=== PATIENT | male | born 1970 | race Caucasian/White ===

== ENCOUNTER 2018-04-16 18:21 | Emergency (ER) | payer OTHER ==
[~2018-04-16] VITALS: Ht 180.3 cm; Wt 83.9 kg
[2018-04-16 19:23] LABS: BILIRUBIN,URINE NEGATIVE (NEG); CLARITY,URINE CLEAR; COLOR,URINE YELLOW; NITRITE,URINE NEGATIVE (NEG); PH,URINE 6.5; PROTEIN,URINE NEGATIVE (NEG-TRACE); UROBILINOGEN,URINE 0.2 mg/dL (0.2 mg/dL)
[2018-04-16 19:38] LABS: BACTERIA,URINE 0 /HPF (0-FEW); RBC,URINE RARE /HPF (0-2); WBC,URINE 0 /HPF (0-4)
[2018-04-16 19:55] LABS: BASO # 0.1 x10^3/uL (0.0-0.2); BASO % 0 % (0-3); EOS % 0 % (0-3); HEMATOCRIT 40.3 % (39.0-53.0); HEMOGLOBIN 13.7 g/dL (13.0-17.5); LYMPH # 1.1 x10^3/uL (1.0-4.8); LYMPH % 8 % (24-48); MEAN CORPUSCULAR HEMOGLOBIN 30 pg (25-35); MEAN CORPUSCULAR HGB CONC 34 g/dL (31-37); MEAN CORPUSCULAR VOLUME 88 fL (79-100); MONO # 0.6 x10^3/uL (0.0-1.1); MONO % 4 % (0-9); NEUT # 11.3 x10^3uL (1.8-7.7); NEUT % 87 % (31-73); PLATELET COUNT 270 x10^3/uL (140-400); RED BLOOD COUNT 4.57 x10^6/uL (4.30-5.70); RED CELL DISTRIBUTION WIDTH 12.8 % (11.5-14.5)
[2018-04-16 20:06] LABS: CALCIUM 9.1 mg/dL (8.5-10.1); CREATININE 0.8 mg/dL (0.7-1.3); GFR 103.2; POTASSIUM 3.7 mmol/L (3.5-5.1)
[2018-04-16 20:12] LABS: ALBUMIN/GLOBULIN RATIO 1.3 (1.0-1.7); TOTAL BILIRUBIN 0.5 mg/dL (0.2-1.0); TOTAL PROTEIN 7.1 g/dL (6.4-8.2)
[2018-04-16] MEDS ORDERED: IV NORMAL SALINE 1000ML BAG 1,000 ML IV ONE (20:15)
[2018-04-16 20:22] LABS: % BANDS 1 % (0-9); % LYMPHS 10 % (24-48); % METAS 1 % (0-0); % MONOS 3 % (0-10); % SEGS 85 % (35-66); PLT ESTIMATE ADEQUATE (ADEQUATE)
[2018-04-16] MEDS ORDERED: CONTRAST GIVEN. MC PRN (21:00)
[2018-04-16] MEDS ORDERED: IOHEXOL 300 MG/ML 100ML VIAL. IV ONE (21:00)
--- NOTE | 2018-04-16 21:16 | RAD ---
PQRS Compliance statement: One or more of the following individualized dose reduction techniques were utilized for this examination: 1. Automated exposure control. 2. Adjustment of the mA and/or kV according to patient size. 3. Use of iterative reconstruction technique. Indication:FLANK PAIN, HEMATURIA, H/O RENAL CYST, OMNI 300, 75ml TECHNIQUE: CT abdomen and pelvis with IV contrast with multiplanar reformats. COMPARISON: None FINDINGS: Heart is normal in size. No pericardial or pleural effusion. Clear lung bases. Liver, spleen, gallbladder, pancreas, adrenals within normal limits. No nephrolithiasis or hydronephrosis. Simple appearing cyst is seen in the left kidney measuring 2.6 cm. No free pelvic fluid or ascites. No enlarged retroperitoneal or pelvic adenopathy. No bowel obstruction. Normal appendix. The prostate and seminal vesicles show no large mass. 3.1 x 1.8 cm posterior bladder diverticulum. No pneumoperitoneum. No suspicious bony lesion. IMPRESSION: No acute findings. Electronically signed by: Donal Dickey DO (04/16/2018 9:13 PM) [facility]
--- NOTE | 2018-04-16 21:33 | PHYS DOC ---
Past Medical History Past Medical History: Hypertension Past Surgical History: Tonsillectomy Alcohol Use: None Drug Use: None Adult General Chief Complaint Chief Complaint: BLOOD IN URINE HPI HPI Patient is a 47 year old male who identifies as female with hormonal therapy and male genitalia who presents with painless hematuria after urinating. Patient states she has been constipated and that after straining she noted small amount of blood present in her urethra. Blood was bright red and has since resolved. Patient also reports vague left flank pain. No history of kidney stones but does report history of renal cysts. No fever chills, nausea vomiting or sweats. No suprapubic pain, burning dysuria. Patient does express concerns for possible STD exposures.[] Review of Systems Review of Systems Review symptoms as per history of present illness. All other review symptoms are negative. [] All other systems were reviewed and found to be within normal limits, except as documented in this note. Current Medications Current Medications Current Medications Medications (Trade) Dose Ordered Sig/Elizabeth Start Time Stop Time Status Last Admin Dose Admin Info (CONTRAST GIVEN -- Rx MONITORING) 1 each PRN DAILY PRN 04/16/18 21:00 04/18/18 20:59 Iohexol (Omnipaque 300 Mg/ml) 75 ml 1X ONCE 04/16/18 21:00 04/16/18 21:01 DC 04/16/18 21:02 75 ML Sodium Chloride 1,000 ml @ 1,000 mls/hr 1X ONCE 04/16/18 20:15 04/16/18 21:14 DC 04/16/18 20:17 1,000 MLS/HR Allergies Allergies Allergies Coded Allergies Type Severity Reaction Last Updated Verified phenobarbital Allergy Unknown 04/16/18 Yes Physical Exam Physical Exam Constitutional: Well developed, well nourished, no acute distress, non-toxic appearance. [] HENT: Normocephalic, atraumatic, bilateral external ears normal, oropharynx moist, no oral exudates, nose normal. [] Eyes: PERRLA, EOMI, conjunctiva normal, no discharge. [] Neck: Normal range of motion, no tenderness, supple. [] Cardiovascular:Heart rate regular rhythm, no murmur [] Lungs & Thorax: Bilateral breath sounds clear to auscultation [] Abdomen: Bowel sounds normal, soft, no tenderness, no masses, no pulsatile masses. [] Skin: Warm, dry, no erythema, no rash. [] Back: No tenderness, no CVA tenderness. [] Extremities: No tenderness, no cyanosis, no clubbing, ROM intact, no edema. [] Neurologic: Alert and oriented X 3, normal motor function, normal sensory function, no focal deficits noted. [] Psychologic: Affect normal, judgement normal, mood normal. [] Current Patient Data Vital Signs Vital Signs Date Time Temp Pulse Resp B/P (MAP) Pulse Ox O2 Delivery O2 Flow Rate FiO2 04/16/18 21:42 83 179/86 (117) 98 04/16/18 19:10 98.1 16 Room Air 98.1 Lab Values Laboratory Tests Test 04/16/18 18:28 04/16/18 19:50 Urine Collection Type Unknown Urine Color Yellow Urine Clarity Clear Urine pH 6.5 Urine Specific [place] <=1.005 Urine Protein Negative mg/dL (NEG-TRACE) Urine Glucose (UA) Negative mg/dL (NEG) Urine Ketones (Stick) Negative mg/dL (NEG) Urine Blood Large (NEG) Urine Nitrite Negative (NEG) Urine Bilirubin Negative (NEG) Urine Urobilinogen Dipstick 0.2 mg/dL (0.2 mg/dL) Urine Leukocyte Esterase Negative (NEG) Urine RBC Rare /HPF (0-2) Urine WBC 0 /HPF (0-4) Urine Bacteria 0 /HPF (0-FEW) White Blood Count 13.0 x10^3/uL (4.0-11.0) H Red Blood Count 4.57 x10^6/uL (4.30-5.70) Hemoglobin 13.7 g/dL (13.0-17.5) Hematocrit 40.3 % (39.0-53.0) Mean Corpuscular Volume 88 fL (79-100) Mean Corpuscular Hemoglobin 30 pg (25-35) Mean Corpuscular Hemoglobin Concent 34 g/dL (31-37) Red Cell Distribution Width 12.8 % (11.5-14.5) Platelet Count 270 x10^3/uL (140-400) Neutrophils (%) (Auto) 87 % (31-73) H Lymphocytes (%) (Auto) 8 % (24-48) L Monocytes (%) (Auto) 4 % (0-9) Eosinophils (%) (Auto) 0 % (0-3) Basophils (%) (Auto) 0 % (0-3) Neutrophils # (Auto) 11.3 x10^3uL (1.8-7.7) H Lymphocytes # (Auto) 1.1 x10^3/uL (1.0-4.8) Monocytes # (Auto) 0.6 x10^3/uL (0.0-1.1) Eosinophils # (Auto) 0.0 x10^3/uL (0.0-0.7) Basophils # (Auto) 0.1 x10^3/uL (0.0-0.2) Segmented Neutrophils % 85 % (35-66) H Band Neutrophils % 1 % (0-9) Lymphocytes % 10 % (24-48) L Monocytes % 3 % (0-10) Metamyelocytes % 1 % (0-0) H Platelet Estimate Adequate (ADEQUATE) Sodium Level 138 mmol/L (136-145) Potassium Level 3.7 mmol/L (3.5-5.1) Chloride Level 100 mmol/L (98-107) Carbon Dioxide Level 25 mmol/L (21-32) Anion Gap 13 (6-14) Blood Urea Nitrogen 13 mg/dL (8-26) Creatinine 0.8 mg/dL (0.7-1.3) Estimated GFR (Cockcroft-Gault) 103.2 BUN/Creatinine Ratio 16 (6-20) Glucose Level 99 mg/dL (70-99) Calcium Level 9.1 mg/dL (8.5-10.1) Total Bilirubin 0.5 mg/dL (0.2-1.0) Aspartate Amino Transferase (AST) 23 U/L (15-37) Alanine Aminotransferase (ALT) 23 U/L (16-63) Alkaline Phosphatase 56 U/L (46-116) Total Protein 7.1 g/dL (6.4-8.2) Albumin 4.0 g/dL (3.4-5.0) Albumin/Globulin Ratio 1.3 (1.0-1.7) Laboratory Tests 04/16/18 19:50 Laboratory Tests 04/16/18 19:50 EKG EKG [] Radiology/Procedures Radiology/Procedures CT abdomen pelvis: No findings kidney stone or obstruction.[] Course & Med Decision Making Course & Med Decision Making Pertinent Labs and Imaging studies reviewed. (See chart for details) [Symptoms essentially resolved prior to ED arrival. Recommend watchful waiting, PCP follow-up for repeat urine test and further outpatient management. Return precautions reviewed.] Dragon Disclaimer Dragon Disclaimer This electronic medical record was generated, in whole or in part, using a voice recognition dictation system. Departure Departure Impression: Primary Impression: Hematuria Disposition: HOME, SELF-CARE Condition: Referrals: NO PCP (PCP) ISMAEL HIDALGO DO Apr 16, 2018 21:33
[2018-04-16 21:42] VITALS: BP 179/86
== END 2018-04-16 21:45 | disposition home or self-care (01) ==
LOC: ER 18:21
DX: R31.9 Hematuria, unspecified (principal); I10 Essential (primary) hypertension; K59.00 Constipation, unspecified; R10.9 Unspecified abdominal pain; Z90.89 Acquired absence of other organs
CPT/HCPCS: 36415; 74177; 80053; 81001; 85007; 85025; 99284; J7030; Q9967